=== PATIENT | female | born 1940 | race African-American/Black ===

== ENCOUNTER → 2020-06-21 | Outpatient (CLI) | payer MEDICARE, BC ==
[2013-10-20 10:45] VITALS: BP 129/56
[~2020-06-21] MED LIST: ACET650T10 PO; ALBU0.63 NEB; ASPI-630 PO; BIMA2.5D OP; DORZ10DR7 OP; FLUT16SP NS; TRIA1CAP3 PO; ZOLPIDEM 5 MG TABLET. PO ONE
--- NOTE | 2020-06-22 09:15 | SLEEP ---
DATE OF STUDY: 06/21/2020 SLEEP STUDY ATTENDING PHYSICIAN: Dr. Hays. The patient is a 80-year-old who weighs 245 pounds with a BMI of 41. The patient's [place] score was 6. The patient underwent diagnostic study performed at [facility]. During the night study, the patient spent 405 minutes in bed and slept for 301 minutes with a sleep efficiency of 74%. Sleep latency was 109 minutes with a REM latency of 160 minutes. Sleep architecture showed normal stage 1 and stage 2 sleep, increased N3 sleep and reduced REM sleep. During the night of the study, the patient slept for 301 minutes. During that time, the patient had 1 obstructive apnea, no mixed apneas, 4 central apneas and 32 hypopneas. The patient's AHI was 7 per hour. Supine AHI 7 per hour and a REM AHI of 23 per hour. Nocturnal oximetry study revealed no significant desaturation of less than 90%. EKG monitoring revealed mean heart rate of 65 beats per minute, no sustained arrhythmias observed. No PLMs observed. Due to low AHI, the patient did not meet the split night criteria for CPAP initiation. IMPRESSION: 1. Mild obstructive sleep apnea with moderate increase during REM sleep. Total AHI 7 per hour with a REM AHI of 23 per hour. 2. No clinically significant nocturnal hypoxia. 3. No clinically significant periodic limb movements. RECOMMENDATIONS: 1. If the patient is clinically symptomatic or has comorbid conditions, then consider treatment of sleep apnea with either CPAP versus oral appliance. 2. Once the patient is optimally treated, then follow up in 4-6 weeks to assess compliance and to document clinical improvement. 3. Weight loss is strongly advised. 4. Avoid [employer] depressants. 5. Caution regarding driving until symptoms of sleep apnea resolve with above recommendations. KASSIE APONTE MD DR: CRISSY/lizet JOB#: [id number] / [id number] Avelino Cabrera MD
== END ==
LOC: SLPLAB 18:45
PROVIDERS: ATTEND Internal Medicine
DX: G47.33 Obstructive sleep apnea (adult) (pediatric) (principal); G47.10 Hypersomnia, unspecified
CPT/HCPCS: 95810

== ENCOUNTER 2021-03-07 22:37 | Inpatient (IN) | payer MEDICARE, BC ==
[~2021-03-07] VITALS: Ht 165.1 cm; Wt 109.5 kg
[~2021-03-07 22:37] MED LIST changes: -ZOLPIDEM 5 MG TABLET. PO ONE
[2021-03-07 23:39] LABS: BILIRUBIN,URINE SMALL (NEG); CLARITY,URINE CLEAR; COLOR,URINE YELLOW; NITRITE,URINE NEGATIVE (NEG); PH,URINE 5.5 (<5.0-8.0); PROTEIN,URINE 30 mg/dL (NEG-TRACE)
[2021-03-07 23:45] LABS: BACTERIA,URINE FEW /HPF (0-FEW); RBC,URINE RARE /HPF (0-2); WBC,URINE RARE /HPF (0-4)
--- NOTE | 2021-03-07 23:59 | ED.ADGEN ---
Past Medical History Past Surgical History: Hysterectomy Smoking Status: Never Smoker Alcohol Use: None General Adult EDM: Chief Complaint: ALTERED MENTAL STATUS HPI: HPI: Patient is a 80 year old via EMS from home for altered mental status. Son called EMS because of patient was wandering outside and confused. He states that she occasionally has wandering thoughts in a conversation but has been persistently confused. On arrival patient thinks that she has not gotten her yet and keeps taking she is still at home. Patient has no other complaints. Has history of hypertension and does not recall the medication she takes for but says she has been taking it regularly. She denies any headaches, fevers, urinary complaints. Patient states that she thinks she has had decreased fluid intake today. Has a history of glaucoma but denies any acute vision changes Review of Systems: Review of Systems: All other systems within normal limits except for as noted in the HPI Allergies: Allergies: Allergies Coded Allergies Type Severity Reaction Last Updated Verified Iodinated Contrast Media Allergy Intermediate Rash 10/20/13 Yes Physical Exam: PE: Constitutional: Well developed, well nourished, no acute distress, non-toxic appearance. [] HENT: Normocephalic, atraumatic, bilateral external ears normal, nose normal. [] Eyes: PERRLA, conjunctiva normal, no discharge. [] Neck: No rigidity, supple, no stridor. [] Cardiovascular: Regular rate and rhythm, brisk cap refill [] Lungs & Thorax: Non labored symmetric respirations, no tachypnea or respiratory distress [] Abdomen: Soft, nondistended. Skin: Warm, dry, no erythema, no rash. [] Back: Unremarkable Extremities: No deformities, range of motion grossly intact, no lower extremity edema [] Neurologic: Alert and oriented X 3, no focal deficits noted. Cranial nerves intact, 5 out of 5 upper and lower extremity strength, no sensory deficit [] Psychologic: Affect normal, judgement normal, mood normal. [] Current Patient Data: Labs: Laboratory Tests Test 03/07/21 23:00 03/08/21 00:45 Urine Collection Type U cath Urine Color Yellow Urine Clarity Clear Urine pH 5.5 (<5.0-8.0) Urine Specific [place] 1.025 (1.000-1.030) Urine Protein 30 mg/dL (NEG-TRACE) Urine Glucose (UA) Negative mg/dL (NEG) Urine Ketones (Stick) Trace mg/dL (NEG) Urine Blood Negative (NEG) Urine Nitrite Negative (NEG) Urine Bilirubin Small (NEG) Urine Urobilinogen Dipstick 1.0 mg/dL (0.2 mg/dL) Urine Leukocyte Esterase Negative (NEG) Urine RBC Rare /HPF (0-2) Urine WBC Rare /HPF (0-4) Urine Squamous Epithelial Cells Few /LPF Urine Bacteria Few /HPF (0-FEW) Urine Mucus Mod /LPF White Blood Count 8.5 x10^3/uL (4.0-11.0) Red Blood Count 4.50 x10^6/uL (3.50-5.40) Hemoglobin 12.8 g/dL (12.0-15.5) Hematocrit 39.4 % (36.0-47.0) Mean Corpuscular Volume 88 fL (79-100) Mean Corpuscular Hemoglobin 29 pg (25-35) Mean Corpuscular Hemoglobin Concent 33 g/dL (31-37) Red Cell Distribution Width 13.2 % (11.5-14.5) Platelet Count 232 x10^3/uL (140-400) Neutrophils (%) (Auto) 73 % (31-73) Lymphocytes (%) (Auto) 20 % (24-48) L Monocytes (%) (Auto) 5 % (0-9) Eosinophils (%) (Auto) 1 % (0-3) Basophils (%) (Auto) 1 % (0-3) Neutrophils # (Auto) 6.2 x10^3/uL (1.8-7.7) Lymphocytes # (Auto) 1.7 x10^3/uL (1.0-4.8) Monocytes # (Auto) 0.4 x10^3/uL (0.0-1.1) Eosinophils # (Auto) 0.1 x10^3/uL (0.0-0.7) Basophils # (Auto) 0.1 x10^3/uL (0.0-0.2) Sodium Level 136 mmol/L (136-145) Potassium Level 3.6 mmol/L (3.5-5.1) Chloride Level 101 mmol/L (98-107) Carbon Dioxide Level 30 mmol/L (21-32) Anion Gap 5 (6-14) L Blood Urea Nitrogen 24 mg/dL (7-20) H Creatinine 1.1 mg/dL (0.6-1.0) H Estimated GFR (Cockcroft-Gault) 58.1 BUN/Creatinine Ratio 22 (6-20) H Glucose Level 119 mg/dL (70-99) H Lactic Acid Level 1.3 mmol/L (0.4-2.0) Calcium Level 10.6 mg/dL (8.5-10.1) H Phosphorus Level 2.7 mg/dL (2.6-4.7) Magnesium Level 2.1 mg/dL (1.8-2.4) Total Bilirubin 0.4 mg/dL (0.2-1.0) Aspartate Amino Transferase (AST) 14 U/L (15-37) L Alanine Aminotransferase (ALT) 19 U/L (14-59) Alkaline Phosphatase 64 U/L (46-116) Ammonia < 10 mcmol/L (11-34) L Troponin I High Sensitivity 7 ng/L (4-50) GC-Dol-W-Type Natriuretic Peptide 57 pg/mL (0-449) Total Protein 8.2 g/dL (6.4-8.2) Albumin 3.8 g/dL (3.4-5.0) Albumin/Globulin Ratio 0.9 (1.0-1.7) L Thyroid Stimulating Hormone (TSH) 1.125 uIU/mL (0.358-3.74) Laboratory Tests 03/08/21 00:45 Laboratory Tests 03/08/21 00:45 Vital Signs: Vital Signs Date Time Temp Pulse Resp B/P (MAP) Pulse Ox O2 Delivery O2 Flow Rate FiO2 03/07/21 23:42 77 165/74 (104) 99 Room Air 03/07/21 22:40 98.6 20 98.6 EKG: EKG: Sinus rhythm, heart rate 80 bpm, no ST elevation or depression, no ectopy., Normal [] Heart Score: C/O Chest Pain: No HEART Score for Chest Pain: HEART Score for Chest Pain Response (Comments) Value History Slighlty/Non-Suspicious 0 ECG Nonspecific Repolarizatio 1 Age > 65 2 Risk Factors 1 or 2 Risk Factors 1 Troponin < Normal Limit 0 Total 4 Risk Factors: Risk Factors: DM, Current or recent (<one month) smoker, HTN, HLP, family history of CAD, obesity. Risk Scores: Score 0 - 3: 2.5% MACE over next 6 weeks - Discharge Home Score 4 - 6: 20.3% MACE over next 6 weeks - Admit for Clinical Observation Score 7 - 10: 72.7% MACE over next 6 weeks - Early Invasive Strategies Radiology/Procedures: Radiology/Procedures: [facility] [address] [place] [address] IMAGING REPORT Signed PATIENT: GHAZAL MILES ACCOUNT: [id number] : 1940 LOCATION: ER AGE: 80 SEX: F EXAM STATUS: REG ER ORD. PHYSICIAN: ARIAN CAN MD REASON: ams PROCEDURE: CT HEAD WO CONTRAST CT Head W/O Contrast: History: Reason: ams / Spl. Instructions: / History: Comparison: none Axial images were obtained without contrast. There is mild to moderate diffuse atrophy. There is no mass effect, extraaxial fluid collections or hydrocephalus. There is no gross bleed. Marked diffuse periventricular and subcortical white matter hypoattenuation is seen. There is no focal loss of willis-white matter distinction to suggest acute ischemia, i.e. stroke. Impression: No acute findings. End impression PQRS Compliance Statement: One or more of the following individualized dose reduction techniques were utilized for this examination: 1. Automated exposure control 2. Adjustment of the mA and/or kV according to patient size 3. Use of iterative reconstruction technique Electronically signed by: Madhu Everett III, MD (03/08/2021 12:12 AM) [facility] DICTATED and SIGNED BY: MADHU EVERETT III, MD DATE: 03/08/21 [id number] [][facility] [address] [place], [place] [id number] IMAGING REPORT Signed PATIENT: GHAZAL MILES ACCOUNT: [id number] : 1940 LOCATION: [address] [place] [address] AGE: 80 SEX: F EXAM STATUS: ADM IN ORD. PHYSICIAN: AVELINO HAYS MD REASON: admitting PROCEDURE: CHEST AP ONLY EXAM: Chest, single view. HISTORY: Altered mental status. COMPARISON: None. FINDINGS: A frontal view of the chest obtained. There is no infiltrate, pleural effusion or pneumothorax. The heart is normal in size. There is suspected left basilar atelectasis or scarring. IMPRESSION: No acute pulmonary finding. Electronically signed by: Ginny Crook MD (03/08/2021 10:29 AM) [id number] DICTATED and SIGNED BY: GINNY CROOK MD DATE: 03/08/21 [id number] Course & Med Decision Making: Course & Med Decision Making Pertinent Labs and Imaging studies reviewed. (See chart for details) [] Dragon Disclaimer: Dragon Disclaimer: This electronic medical record was generated, in whole or in part, using a voice recognition dictation system. Departure Departure Impression: Primary Impression: AMS (altered mental status) Disposition: ADMITTED INPATIENT Admitting Physician: Avelino Hays Condition: STABLE Referrals: AVELINO HAYS MD (PCP) ARIAN CAN MD Mar 07, 2021 23:58
--- NOTE | 2021-03-08 00:15 | RAD ---
CT Head W/O Contrast: History: Reason: ams / Spl. Instructions: / History: Comparison: none Axial images were obtained without contrast. There is mild to moderate diffuse atrophy. There is no mass effect, extraaxial fluid collections or hydrocephalus. There is no gross bleed. Marked diffuse periventricular and subcortical white matter hypoattenuation is seen. There is no focal loss of willis-white matter distinction to suggest acute is chemia, i.e. stroke. Impression: No acute findings. End impression PQRS Compliance Statement: One or more of the following individualized dose reduction techniques were utilized for this examinat ion: 1. Automated exposure control 2. Adjustment of the mA and/or kV according to patient size 3. Use of iterative reconstruction technique Electronically signed by: Carter Adair III, MD (03/08/2021 12:12 AM) [facility] [place]
[2021-03-08 01:00] LABS: BASO # 0.1 x10^3/uL (0.0-0.2); BASO % 1 % (0-3); EOS # 0.1 x10^3/uL (0.0-0.7); EOS % 1 % (0-3); HEMATOCRIT 39.4 % (36.0-47.0); HEMOGLOBIN 12.8 g/dL (12.0-15.5); LYMPH # 1.7 x10^3/uL (1.0-4.8); LYMPH % 20 % (24-48); MEAN CORPUSCULAR HEMOGLOBIN 29 pg (25-35); MEAN CORPUSCULAR HGB CONC 33 g/dL (31-37); MEAN CORPUSCULAR VOLUME 88 fL (79-100); MONO # 0.4 x10^3/uL (0.0-1.1); MONO % 5 % (0-9); NEUT # 6.2 x10^3/uL (1.8-7.7); NEUT % 73 % (31-73); PLATELET COUNT 232 x10^3/uL (140-400); RED CELL DISTRIBUTION WIDTH 13.2 % (11.5-14.5); WHITE BLOOD COUNT 8.5 x10^3/uL (4.0-11.0)
[2021-03-08 01:15] LABS: CALCIUM 10.6 mg/dL (8.5-10.1); CREATININE 1.1 mg/dL (0.6-1.0); GFR 58.1; POTASSIUM 3.6 mmol/L (3.5-5.1)
[2021-03-08 01:29] LABS: ALBUMIN 3.8 g/dL (3.4-5.0); ALBUMIN/GLOBULIN RATIO 0.9 (1.0-1.7); MAGNESIUM 2.1 mg/dL (1.8-2.4); PHOSPHORUS 2.7 mg/dL (2.6-4.7); TOTAL BILIRUBIN 0.4 mg/dL (0.2-1.0); TOTAL PROTEIN 8.2 g/dL (6.4-8.2)
[2021-03-08] MEDS ORDERED: ACETAMINOPHEN 325 MG TABLET. PO PRN ×2 (02:30→09:45)
[2021-03-08] MEDS ORDERED: ONDANSETRON PF 4 MG/2 ML VIAL. IVP PRN (02:30)
[2021-03-08] MEDS ORDERED: IV NORMAL SALINE 500ML BAG 500 ML IV ONE (02:30)
--- NOTE | 2021-03-08 03:10 | EKG ---
[facility] [address] [place] [address] Test Date: 2021-03-07 Test Time: 22:44:47 Pat Name: GHAZAL MILES Department: Room: Gender: F Commercial Director: : 1940 Requested By: ARIAN CAN Order Number: [id number] Reading MD: Fredrick Cline Measurements Intervals [place] Rate: 88 P: 170 PA: 192 QRS: 13 QRSD: 82 T: 17 QT: 360 QTc: 439 Interpretive Statements SINUS RHYTHM QRS(T) CONTOUR ABNORMALITY CONSISTENT WITH INFERIOR INFARCT PROBABLY OLD ABNORMAL ECG RI6.02 No previous ECG available for comparison Electronically Signed On 03-12-2021 9:32:29 BL[employer]ACER by Fredrick Cline
[2021-03-08 04:15] VITALS: BP 166/70
--- NOTE | 2021-03-08 04:30 | NUR ---
The patient, GHAZAL MILES, 80 y/o, F admitted by SARBJIT HARVEY MD, was given written information regarding hospital policies, unit procedures and contact persons. COMPLETED ASSESSMENT AND HISTORY. PT DOESNT KNOW HER MEDICATIONS Valuables were checked and DOCUMENTED IN EMAR..LCRN
[2021-03-08 07:00] VITALS: BP 152/68
--- NOTE | 2021-03-08 07:02 | NUR ---
CALLED PT'S SON VALENTINA AND LEFT A MESSAGE FOR HIM ASKING HIM TO BRING ALL HER MEDICATIONS TO THE HOSPITAL SO THE DOCTOR CAN REORDER THEM . PT HAS SPORTS TAPE ON BILATERAL ANTERIOR LOWER LEGS. SHE SAID IT IS FOR HER KNEE ARTHRITIS. LCRN
[2021-03-08] MEDS ORDERED: MAGNESIUM HYDROXIDE 2,400 MG/30 ML ORAL.SUSP. PO PRN (09:45)
--- NOTE | 2021-03-08 09:55 | PDOC2 ---
NEUROLOGY CONSULT Date of Service DOS: DATE: 03/08/21 TIME: 09:49 Reason for Consult Reason for Consult: Altered mental status Referring Physician Referring Physician: Dr. Hays Source Source: Chart review, Patient History of Present Illness History of Present Illness The patient is a 80-year-old right-handed female whose son called emergency medical services last night because she was wandering around outside and confused. He told emergency room personnel that she wanders up sometimes and sometimes has trouble keeping her conversation straight. 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 She feels fine now. She denies any focal weakness, numbness, dysarthria, or dysphagia. She has never had a stroke, seizure, or head injury. Past Medical History Cardiovascular: HTN Pulmonary: Asthma, Pneumonia GI: GERD Psych: Depression Musculoskeletal: Osteoarthritis ENT: Other (Glaucoma, bilateral blindness) Renal/: Other (Urinary retention) Past Surgical History Past Surgical History: Hysterectomy Family History Family History: No pertinent hx Social History Social History , no alcohol or tobacco Current Medications Current Medications Current Medications Ondansetron HCl (Zofran) 4 mg PRN Q8HRS PRN IVP NAUSEA/VOMITING; Start 03/08/21 at 02:30; Stop 03/09/21 at 02:29 Acetaminophen (Tylenol) 650 mg PRN Q4HRS PRN PO FEVER > 100.3'F; Start 03/08/21 at 02:30; Stop 03/09/21 at 02:29 Sodium Chloride 500 ml @ 500 mls/hr 1X ONCE IV Last administered on 1at 02:30; Start 03/08/21 at 02:30; Stop 03/08/21 at 03:29; Status DC Active Scripts Active Reported Lumigan (Bimatoprost) 2.5 Ml Drops 0.01 Ml OP DAILY Dorzolamide-Timolol Eye Drops (Dorzolamide Hcl/Timolol Maleat) 10 Ml Drops 10 Ml OP BID Arthritis Pain Reliever (Acetaminophen) 650 Mg Tablet.er 650 Mg PO PRN Aspirin 81 Mg Tab.chew 81 Mg PO DAILY Triamterene-Hctz 37.5-25 Mg Cp (Triamterene/Hydrochlorothiazid) 1 Each Capsule 1 Cap PO DAILY Fluticasone Propionate 16 Gm [place].susp 1 [place] NS DAILY PRN Albuterol Sulfate Neb Soln (Albuterol Sulfate) 0.63 Mg/3 Ml Vial.neb 0.083 Mg NEB PRN Allergies Allergies: Coded Allergies: Iodinated Contrast Media (Verified Allergy, Intermediate, Rash, 10/20/13) codeine (Verified Adverse Reaction, Intermediate, Nausea, 03/08/21) ROS Review of System Negative for fever, chills, weight loss, shortness of breath, chest pain, indigestion, hematochezia, melena, and dysuria. Full 14-point review of systems is negative. Physical Exam Physical Examination General: Well-developed, well-nourished, black female, in no acute distress HEENT: Normocephalic andatraumatic.Temporal arteriespulsatile and nontender. Neck: Supple without bruit, no meningismus Musculoskeletal: Stability:see neurologic. Gait exam:see neurologic. Tone:see neurologic.Strength:see neurologic. Neurological: Mental Status:intact, orientation, memory, attention span/concentration, language, fund of knowledge normal. Cranial Nerves:Pupils equal and reactive to light, extraocular movements areintact, bilateral visual loss. Facial sensation is normal. There is no facial asymmetry. Vestibulo-ocular reflex is intact. Palate elevates and tongue protrudes in midline. All other cranial related problems are negative except as mentioned before.Reflexes:1+ and symmetric with flexor plantar responses. Motor:4/5 strength with normal tone and bulk. Coordination:Not easily checked due to blindness. Rapid alternating movements and fine finger movements are intact. Gait:Not tested. Sensory:Normal pinprick, vibration, light touch, proprioception. Vitals VITALS Vital Signs Date Time Temp Pulse Resp B/P (MAP) Pulse Ox O2 Delivery O2 Flow Rate FiO2 03/08/21 07:45 Room Air 03/08/21 07:00 98.6 82 18 152/68 (96) 100 98.6 Labs Labs Laboratory Tests Test 03/07/21 23:00 03/08/21 00:45 Urine Collection Type U cath Urine Color Yellow Urine Clarity Clear Urine pH 5.5 (<5.0-8.0) Urine Specific [place] 1.025 (1.000-1.030) Urine Protein 30 mg/dL (NEG-TRACE) Urine Glucose (UA) Negative mg/dL (NEG) Urine Ketones (Stick) Trace mg/dL (NEG) Urine Blood Negative (NEG) Urine Nitrite Negative (NEG) Urine Bilirubin Small (NEG) Urine Urobilinogen Dipstick 1.0 mg/dL (0.2 mg/dL) Urine Leukocyte Esterase Negative (NEG) Urine RBC Rare /HPF (0-2) Urine WBC Rare /HPF (0-4) Urine Squamous Epithelial Cells Few /LPF Urine Bacteria Few /HPF (0-FEW) Urine Mucus Mod /LPF White Blood Count 8.5 x10^3/uL (4.0-11.0) Red Blood Count 4.50 x10^6/uL (3.50-5.40) Hemoglobin 12.8 g/dL (12.0-15.5) Hematocrit 39.4 % (36.0-47.0) Mean Corpuscular Volume 88 fL (79-100) Mean Corpuscular Hemoglobin 29 pg (25-35) Mean Corpuscular Hemoglobin Concent 33 g/dL (31-37) Red Cell Distribution Width 13.2 % (11.5-14.5) Platelet Count 232 x10^3/uL (140-400) Neutrophils (%) (Auto) 73 % (31-73) Lymphocytes (%) (Auto) 20 % (24-48) Monocytes (%) (Auto) 5 % (0-9) Eosinophils (%) (Auto) 1 % (0-3) Basophils (%) (Auto) 1 % (0-3) Neutrophils # (Auto) 6.2 x10^3/uL (1.8-7.7) Lymphocytes # (Auto) 1.7 x10^3/uL (1.0-4.8) Monocytes # (Auto) 0.4 x10^3/uL (0.0-1.1) Eosinophils # (Auto) 0.1 x10^3/uL (0.0-0.7) Basophils # (Auto) 0.1 x10^3/uL (0.0-0.2) Sodium Level 136 mmol/L (136-145) Potassium Level 3.6 mmol/L (3.5-5.1) Chloride Level 101 mmol/L (98-107) Carbon Dioxide Level 30 mmol/L (21-32) Anion Gap 5 (6-14) Blood Urea Nitrogen 24 mg/dL (7-20) Creatinine 1.1 mg/dL (0.6-1.0) Estimated GFR (Cockcroft-Gault) 58.1 BUN/Creatinine Ratio 22 (6-20) Glucose Level 119 mg/dL (70-99) Lactic Acid Level 1.3 mmol/L (0.4-2.0) Calcium Level 10.6 mg/dL (8.5-10.1) Phosphorus Level 2.7 mg/dL (2.6-4.7) Magnesium Level 2.1 mg/dL (1.8-2.4) Total Bilirubin 0.4 mg/dL (0.2-1.0) Aspartate Amino Transf (AST/SGOT) 14 U/L (15-37) Alanine Aminotransferase (ALT/SGPT) 19 U/L (14-59) Alkaline Phosphatase 64 U/L (46-116) Ammonia < 10 mcmol/L (11-34) Troponin I High Sensitivity 7 ng/L (4-50) GE-Hcv-I-Type Natriuretic Peptide 57 pg/mL (0-449) Total Protein 8.2 g/dL (6.4-8.2) Albumin 3.8 g/dL (3.4-5.0) Albumin/Globulin Ratio 0.9 (1.0-1.7) Thyroid Stimulating Hormone (TSH) 1.125 uIU/mL (0.358-3.74) Laboratory Tests Test 03/07/21 23:00 03/08/21 00:45 Urine Collection Type U cath Urine Color Yellow Urine Clarity Clear Urine pH 5.5 (<5.0-8.0) Urine Specific [place] 1.025 (1.000-1.030) Urine Protein 30 mg/dL (NEG-TRACE) Urine Glucose (UA) Negative mg/dL (NEG) Urine Ketones (Stick) Trace mg/dL (NEG) Urine Blood Negative (NEG) Urine Nitrite Negative (NEG) Urine Bilirubin Small (NEG) Urine Urobilinogen Dipstick 1.0 mg/dL (0.2 mg/dL) Urine Leukocyte Esterase Negative (NEG) Urine RBC Rare /HPF (0-2) Urine WBC Rare /HPF (0-4) Urine Squamous Epithelial Cells Few /LPF Urine Bacteria Few /HPF (0-FEW) Urine Mucus Mod /LPF White Blood Count 8.5 x10^3/uL (4.0-11.0) Red Blood Count 4.50 x10^6/uL (3.50-5.40) Hemoglobin 12.8 g/dL (12.0-15.5) Hematocrit 39.4 % (36.0-47.0) Mean Corpuscular Volume 88 fL (79-100) Mean Corpuscular Hemoglobin 29 pg (25-35) Mean Corpuscular Hemoglobin Concent 33 g/dL (31-37) Red Cell Distribution Width 13.2 % (11.5-14.5) Platelet Count 232 x10^3/uL (140-400) Neutrophils (%) (Auto) 73 % (31-73) Lymphocytes (%) (Auto) 20 % (24-48) Monocytes (%) (Auto) 5 % (0-9) Eosinophils (%) (Auto) 1 % (0-3) Basophils (%) (Auto) 1 % (0-3) Neutrophils # (Auto) 6.2 x10^3/uL (1.8-7.7) Lymphocytes # (Auto) 1.7 x10^3/uL (1.0-4.8) Monocytes # (Auto) 0.4 x10^3/uL (0.0-1.1) Eosinophils # (Auto) 0.1 x10^3/uL (0.0-0.7) Basophils # (Auto) 0.1 x10^3/uL (0.0-0.2) Sodium Level 136 mmol/L (136-145) Potassium Level 3.6 mmol/L (3.5-5.1) Chloride Level 101 mmol/L (98-107) Carbon Dioxide Level 30 mmol/L (21-32) Anion Gap 5 (6-14) Blood Urea Nitrogen 24 mg/dL (7-20) Creatinine 1.1 mg/dL (0.6-1.0) Estimated GFR (Cockcroft-Gault) 58.1 BUN/Creatinine Ratio 22 (6-20) Glucose Level 119 mg/dL (70-99) Lactic Acid Level 1.3 mmol/L (0.4-2.0) Calcium Level 10.6 mg/dL (8.5-10.1) Phosphorus Level 2.7 mg/dL (2.6-4.7) Magnesium Level 2.1 mg/dL (1.8-2.4) Total Bilirubin 0.4 mg/dL (0.2-1.0) Aspartate Amino Transf (AST/SGOT) 14 U/L (15-37) Alanine Aminotransferase (ALT/SGPT) 19 U/L (14-59) Alkaline Phosphatase 64 U/L (46-116) Ammonia < 10 mcmol/L (11-34) Troponin I High Sensitivity 7 ng/L (4-50) QG-[place]-O-Type Natriuretic Peptide 57 pg/mL (0-449) Total Protein 8.2 g/dL (6.4-8.2) Albumin 3.8 g/dL (3.4-5.0) Albumin/Globulin Ratio 0.9 (1.0-1.7) Thyroid Stimulating Hormone (TSH) 1.125 uIU/mL (0.358-3.74) Images Images CT Head W/O Contrast: History: Reason: ams / Spl. Instructions: / History: Comparison: none Axial images were obtained without contrast. There is mild to moderate diffuse atrophy. There is no mass effect, extraaxial fluid collections or hydrocephalus. There is no gross bleed. Marked diffuse periventricular and subcortical white matter hypoattenuation is seen. There is no focal loss of willis-white matter distinction to suggest acute ischemia, i.e. stroke. Impression: No acute findings. End impression Assessment/Plan Assessment/Plan Impression: Altered mental status, probably confusional state due to blindness, she may be developing mild dementia. There is no obvious metabolic issue. Behavior sounds too complex to be due to a seizure. She had some hyperglycemia and hypercalcemia. She feels fine now. Recommendations: Additional laboratory studies for easily reversible causes of dementia. Hold off on electroencephalogram Okay for discharge later today Follow-up with ophthalmology Follow-up with neurology if confusion recurs I left a message with the patient's son. ANNI WARD MD Mar 08, 2021 09:54
--- NOTE | 2021-03-08 10:00 | PDOC ---
Provider Note Date of Service: DATE: 03/08/21 TIME: 09:59 Provider Note history and physical dictated # [id number] Justifications for Admission Other Justification SARBJIT HARVEY MD Mar 08, 2021 10:00
--- NOTE | 2021-03-08 10:32 | RAD ---
EXAM: Chest, single view. HISTORY: Altered mental status. COMPARISON: None. FINDINGS: A frontal view of the chest obtained. There is no infiltrate, pleural effusion or pneumotho rax. The heart is normal in size. There is suspected left basilar atelectasis or scarring. IMPRESSION: No acute pulmonary finding. Electronically signed by: Ginny Martinez MD (03/08/2021 10:29 AM) [id number]
[2021-03-08 11:00] VITALS: BP 126/63
[2021-03-08] MEDS: POTASSIUM CHLORIDE 20 MEQ TABLET.ER. PO SCH (11:49)
[2021-03-08] MEDS: TRIAMTERENE/HCTZ 37.5/25MG TABLET. PO SCH (11:49)
--- NOTE | 2021-03-08 13:00 | HP ---
DATE OF SERVICE: 03/08/2021 ADMIT DATE: 03/08/2021 LOCATION: She is in room 660. HISTORY OF PRESENT ILLNESS: The patient is a morbidly obese 80-year-old -[place] female with a history of hypertension and osteoarthritis, who apparently was confused at home. She does live with her son. According to the son, the patient was wandering outside and was confused and apparently also had some wandering thoughts during conversation. The patient was sent to the [facility] Emergency Room. According to the patient, the patient was on the telephone with somebody and was confused after that and says she was going to put a sweet potato in microwave and she slipped in the kitchen and fell on the floor, the paramedics arrived to help her get up. She denied any head trauma or loss of consciousness. In any case, the patient was sent to the Emergency Room where a CAT scan of the head showed no acute abnormality. Laboratory tests were unremarkable and she was subsequently admitted to the hospital for further evaluation and treatment. She was placed on telemetry, did not have any arrhythmias. She denies any fever. She has an occasional cough, which she had with clear sputum. ALLERGIES AND INTOLERANCES: TO CODEINE, IV IODINE. MEDICATIONS PRIOR TO ADMISSION: Include Celebrex 200 mg every day p.r.n., furosemide 20 mg every day p.r.n. for leg swelling, eye drops for glaucoma, potassium chloride 20 mEq every day, Dyazide 37.5-25 mg 1 every day. PAST MEDICAL HISTORY: Significant for morbid obesity, hypertension, hyperlipidemia, glaucoma, hysterectomy, arthrocentesis in the left knee, osteoarthritis. SOCIAL HISTORY: She denies drinking alcohol or smoking cigarettes. Lives with her son, uses a cane at home. FAMILY HISTORY: Not contributory. REVIEW OF SYSTEMS: GENERAL: She denies any fever, chills or sweats in the last few days. CARDIOVASCULAR: No chest pain. PULMONARY: Shortness of breath. She has an occasional cough with clear sputum. GASTROINTESTINAL: No constipation. ENDOCRINE: No diabetes mellitus. SKIN: No rashes. Rest of systems reviewed and are negative except as stated in the history of present illness. PHYSICAL EXAMINATION: VITAL SIGNS: Temperature 98.6 degrees, apical pulse regular at 82, respiratory rate 18, blood pressure 152/68, oxygen saturation 100% on room air. HEENT: Eyes, gaze is conjugate. She has poor vision. Mouth is symmetrical. Tongue is midline. NECK: There is no cervical lymphadenopathy or thyroid enlargement. HEART: Reveals an S1, S2. There is no S3 or murmur. LUNGS: Clear. ABDOMEN: Obese and soft, nontender with no hepatosplenomegaly, masses or tenderness. EXTREMITIES: Lower extremities without edema. Dorsalis pedis pulses are present bilaterally. SKIN: No rashes. NEUROLOGIC: There is no facial weakness. She has got 5/5 bilateral hand vp client services and biceps strength. Able to dorsi and plantarflex her feet, bend her knees and raise her legs up in the air symmetrically. She could not tell me the year. She knew the month was February. She could not tell me the next holiday. She could not recite the months of the year backwards starting with March. LABORATORY DATA: Review of her laboratory tests, sodium 136, potassium 3.6, chloride 101, total CO2 of 30 with a BUN of 24, creatinine 1.1, blood sugar was 19, calcium 10.6. Liver function tests normal. Albumin 3.8. The white count was 8.5, hemoglobin 12.8, platelet count 332,000, polys 73 and 20 lymphocytes. Urinalysis showed rare white cells, rare wbc's. She had a CAT scan of the head done and it showed no acute finding. It showed [id number] atrophy. No mass effect, fluid collection or hydrocephalus. No bleed. No evidence of acute stroke was seen. I do not see a chest x-ray done. EKG per the note of the Emergency Room physician showed normal sinus rhythm with no acute change. ASSESSMENT: 1. Altered mental status, most likely secondary to mild cognitive impairment versus dementia. Metabolic encephalopathy is another possibility; however, I believe she does have at least some mild cognitive impairment and possibly dementia. 2. Hypertension. 3. Osteoarthritis. 4. Morbid obesity. 5. Glaucoma with impaired vision. PLAN: The plan at this time is consult to Dr. Ellis. He has not written a note yet. We will consult physical and occupational therapy for a possible fall. She does have impaired vision. Resume her home daily medications including the Dyazide and potassium chloride. Continue with telemetry. We will also get a vitamin B12 level. She did have a thyroid stimulating hormone level and the thyroid stimulating hormone level was normal. ProBNP and the ammonia level and the troponin level and a lactic acid level were all normal. So the plan at this time as mentioned is physical and occupational therapy. Speech therapy will evaluate her cognition and I am going to consult Dr. Weir, the neurologist. Continue her home medicines. We will check a B12 level. Await the recommendations from Dr. Ellis. Continue telemetry. Thank you very much. JADE DR: Edi TID: [id number]
[2021-03-08] MEDS: DICLOFENAC SODIUM 1% TOPICAL GEL 100GM TUBE. TP SCH ×2 (14:46→21:26)
[2021-03-08 15:00] VITALS: BP 133/69
--- NOTE | 2021-03-08 15:52 | NUR ---
SS following for discharge planning. SS reviewed pt chart and discussed with pt RN. Pt is from home with son and is currently on room air. PT/OT/ST ordered. Neurology consulted. SS will continue to follow for discharge planning.
[2021-03-08 19:47] VITALS: BP 110/56
[2021-03-08] MEDS: ENOXAPARIN 40 MG/0.4 ML SYRINGE. SQ SCH (21:25)
[2021-03-08 22:50] VITALS: BP 149/86
[2021-03-09 02:49] VITALS: BP 135/68
[2021-03-09 06:07] LABS: BASO % 0 % (0-3); EOS # 0.2 x10^3/uL (0.0-0.7); EOS % 2 % (0-3); HEMATOCRIT 38.6 % (36.0-47.0); HEMOGLOBIN 12.2 g/dL (12.0-15.5); LYMPH # 3.1 x10^3/uL (1.0-4.8); LYMPH % 47 % (24-48); MEAN CORPUSCULAR HEMOGLOBIN 28 pg (25-35); MEAN CORPUSCULAR HGB CONC 32 g/dL (31-37); MEAN CORPUSCULAR VOLUME 87 fL (79-100); MONO # 0.4 x10^3/uL (0.0-1.1); MONO % 6 % (0-9); NEUT # 2.8 x10^3/uL (1.8-7.7); NEUT % 44 % (31-73); PLATELET COUNT 233 x10^3/uL (140-400); RED BLOOD COUNT 4.42 x10^6/uL (3.50-5.40); RED CELL DISTRIBUTION WIDTH 13.6 % (11.5-14.5); WHITE BLOOD COUNT 6.5 x10^3/uL (4.0-11.0)
[2021-03-09 06:17] LABS: CALCIUM 10.3 mg/dL (8.5-10.1); CREATININE 0.9 mg/dL (0.6-1.0); GFR 73.3; POTASSIUM 3.6 mmol/L (3.5-5.1)
[2021-03-09 07:00] VITALS: BP 149/68
[2021-03-09] MEDS: TRIAMTERENE/HCTZ 37.5/25MG TABLET. PO SCH (08:32)
[2021-03-09] MEDS: POTASSIUM CHLORIDE 20 MEQ TABLET.ER. PO SCH (08:32)
[2021-03-09] MEDS: DICLOFENAC SODIUM 1% TOPICAL GEL 100GM TUBE. TP SCH ×3 (08:32→20:46)
[2021-03-09 10:15] VITALS: BP 153/62
--- NOTE | 2021-03-09 11:07 | PDOC ---
PROGRESS NOTES Date of Service DATE: 03/09/21 TIME: 11:04 Subjective Subjective lab reviewed. feels okay. discussed with hospice social worker that PT recommends SNF. also I recommend she eventually dismiss to [facility] due to cognitive and visual deficits Objective Objective Vital Signs Date Time Temp Pulse Resp B/P (MAP) Pulse Ox O2 Delivery O2 Flow Rate FiO2 03/09/21 10:15 98.2 85 20 153/62 (92) 99 Room Air 98.2 Intake and Output 03/09/21 07:00 Intake Total 300 ml Output Total 700 ml Balance -400 ml Intake Oral 300 ml Output Urine Total 700 ml # Voids 2 Physical Exam Abdomen: Soft Heart: Regular rate, Normal S1, Normal S2 Extremities: No edema General: Alert HEENT: Atraumatic Lungs: Clear to auscultation Neuro: Normal speech Psych/Mental Status: Mood NL, Other (does not know year) Skin: No rashes Assessment Assessment 1. Altered mental status, most likely secondary to mild cognitive impairment versus dementia. Metabolic encephalopathy is another possibility; however, I believe she does have at least some mild cognitive impairment and possibly dementia. 2. Hypertension. 3. Osteoarthritis. 4. Morbid obesity. 5. Glaucoma with impaired vision. Plan Plan of Care PT and OT SNF screen continue same meds Comment Review of Relevant I have reviewed the following items tamia (where applicable) has been applied. Labs Laboratory Tests Test 03/07/21 23:00 03/08/21 00:45 03/08/21 10:00 03/09/21 03:35 Urine Collection Type U cath Urine Color Yellow Urine Clarity Clear Urine pH 5.5 (<5.0-8.0) Urine Specific [place] 1.025 (1.000-1.030) Urine Protein 30 mg/dL (NEG-TRACE) Urine Glucose (UA) Negative mg/dL (NEG) Urine Ketones (Stick) Trace mg/dL (NEG) Urine Blood Negative (NEG) Urine Nitrite Negative (NEG) Urine Bilirubin Small (NEG) Urine Urobilinogen Dipstick 1.0 mg/dL (0.2 mg/dL) Urine Leukocyte Esterase Negative (NEG) Urine RBC Rare /HPF (0-2) Urine WBC Rare /HPF (0-4) Urine Squamous Epithelial Cells Few /LPF Urine Bacteria Few /HPF (0-FEW) Urine Mucus Mod /LPF White Blood Count 8.5 x10^3/uL (4.0-11.0) 6.5 x10^3/uL (4.0-11.0) Red Blood Count 4.50 x10^6/uL (3.50-5.40) 4.42 x10^6/uL (3.50-5.40) Hemoglobin 12.8 g/dL (12.0-15.5) 12.2 g/dL (12.0-15.5) Hematocrit 39.4 % (36.0-47.0) 38.6 % (36.0-47.0) Mean Corpuscular Volume 88 fL (79-100) 87 fL (79-100) Mean Corpuscular Hemoglobin 29 pg (25-35) 28 pg (25-35) Mean Corpuscular Hemoglobin Concent 33 g/dL (31-37) 32 g/dL (31-37) Red Cell Distribution Width 13.2 % (11.5-14.5) 13.6 % (11.5-14.5) Platelet Count 232 x10^3/uL (140-400) 233 x10^3/uL (140-400) Neutrophils (%) (Auto) 73 % (31-73) 44 % (31-73) Lymphocytes (%) (Auto) 20 % (24-48) 47 % (24-48) Monocytes (%) (Auto) 5 % (0-9) 6 % (0-9) Eosinophils (%) (Auto) 1 % (0-3) 2 % (0-3) Basophils (%) (Auto) 1 % (0-3) 0 % (0-3) Neutrophils # (Auto) 6.2 x10^3/uL (1.8-7.7) 2.8 x10^3/uL (1.8-7.7) Lymphocytes # (Auto) 1.7 x10^3/uL (1.0-4.8) 3.1 x10^3/uL (1.0-4.8) Monocytes # (Auto) 0.4 x10^3/uL (0.0-1.1) 0.4 x10^3/uL (0.0-1.1) Eosinophils # (Auto) 0.1 x10^3/uL (0.0-0.7) 0.2 x10^3/uL (0.0-0.7) Basophils # (Auto) 0.1 x10^3/uL (0.0-0.2) 0.0 x10^3/uL (0.0-0.2) Sodium Level 136 mmol/L (136-145) 140 mmol/L (136-145) Potassium Level 3.6 mmol/L (3.5-5.1) 3.6 mmol/L (3.5-5.1) Chloride Level 101 mmol/L (98-107) 103 mmol/L (98-107) Carbon Dioxide Level 30 mmol/L (21-32) 29 mmol/L (21-32) Anion Gap 5 (6-14) 8 (6-14) Blood Urea Nitrogen 24 mg/dL (7-20) 17 mg/dL (7-20) Creatinine 1.1 mg/dL (0.6-1.0) 0.9 mg/dL (0.6-1.0) Estimated GFR (Cockcroft-Gault) 58.1 73.3 BUN/Creatinine Ratio 22 (6-20) Glucose Level 119 mg/dL (70-99) 87 mg/dL (70-99) Lactic Acid Level 1.3 mmol/L (0.4-2.0) Calcium Level 10.6 mg/dL (8.5-10.1) 10.3 mg/dL (8.5-10.1) Phosphorus Level 2.7 mg/dL (2.6-4.7) Magnesium Level 2.1 mg/dL (1.8-2.4) Total Bilirubin 0.4 mg/dL (0.2-1.0) Aspartate Amino Transf (AST/SGOT) 14 U/L (15-37) Alanine Aminotransferase (ALT/SGPT) 19 U/L (14-59) Alkaline Phosphatase 64 U/L (46-116) Ammonia < 10 mcmol/L (11-34) Troponin I High Sensitivity 7 ng/L (4-50) FW-Lgy-T-Type Natriuretic Peptide 57 pg/mL (0-449) Total Protein 8.2 g/dL (6.4-8.2) Albumin 3.8 g/dL (3.4-5.0) Albumin/Globulin Ratio 0.9 (1.0-1.7) Thyroid Stimulating Hormone (TSH) 1.125 uIU/mL (0.358-3.74) Erythrocyte Sedimentation Rate 23 (0-25) Vitamin B12 Level 543 pg/mL (247-911) Laboratory Tests Test 03/09/21 03:35 White Blood Count 6.5 x10^3/uL (4.0-11.0) Red Blood Count 4.42 x10^6/uL (3.50-5.40) Hemoglobin 12.2 g/dL (12.0-15.5) Hematocrit 38.6 % (36.0-47.0) Mean Corpuscular Volume 87 fL (79-100) Mean Corpuscular Hemoglobin 28 pg (25-35) Mean Corpuscular Hemoglobin Concent 32 g/dL (31-37) Red Cell Distribution Width 13.6 % (11.5-14.5) Platelet Count 233 x10^3/uL (140-400) Neutrophils (%) (Auto) 44 % (31-73) Lymphocytes (%) (Auto) 47 % (24-48) Monocytes (%) (Auto) 6 % (0-9) Eosinophils (%) (Auto) 2 % (0-3) Basophils (%) (Auto) 0 % (0-3) Neutrophils # (Auto) 2.8 x10^3/uL (1.8-7.7) Lymphocytes # (Auto) 3.1 x10^3/uL (1.0-4.8) Monocytes # (Auto) 0.4 x10^3/uL (0.0-1.1) Eosinophils # (Auto) 0.2 x10^3/uL (0.0-0.7) Basophils # (Auto) 0.0 x10^3/uL (0.0-0.2) Sodium Level 140 mmol/L (136-145) Potassium Level 3.6 mmol/L (3.5-5.1) Chloride Level 103 mmol/L (98-107) Carbon Dioxide Level 29 mmol/L (21-32) Anion Gap 8 (6-14) Blood Urea Nitrogen 17 mg/dL (7-20) Creatinine 0.9 mg/dL (0.6-1.0) Estimated GFR (Cockcroft-Gault) 73.3 Glucose Level 87 mg/dL (70-99) Calcium Level 10.3 mg/dL (8.5-10.1) Microbiology 03/08/21 Blood Culture - Preliminary, Resulted NO GROWTH AFTER 1 DAY Medications Current Medications Ondansetron HCl (Zofran) 4 mg PRN Q8HRS PRN IVP NAUSEA/VOMITING; Start 03/08/21 at 02:30; Stop 03/09/21 at 02:29; Status DC Acetaminophen (Tylenol) 650 mg PRN Q4HRS PRN PO FEVER > 100.3'F; Start 03/08/21 at 02:30; Stop 03/08/21 at 09:57; Status DC Sodium Chloride 500 ml @ 500 mls/hr 1X ONCE IV Last administered on 03/08/21at 02:30; Start 03/08/21 at 02:30; Stop 03/08/21 at 03:29; Status DC Potassium Chloride (Klor-Con) 20 meq DAILY PO Last administered on 03/09/21at 08:32; Start 03/08/21 at 11:00 Triamterene/HCTZ (Maxzide 37.5/ 25mg) 1 tab DAILY PO Last administered on 03/09/21at 08:32; Start 03/08/21 at 11:00 Acetaminophen (Tylenol) 650 mg PRN Q6HRS PRN PO MILD PAIN / TEMP > 100.3'F; Start 03/08/21 at 09:45 Magnesium Hydroxide (Milk Of Magnesia) 2,400 mg PRN DAILY PRN PO CONSTIPATION; Start 03/08/21 at 09:45 Enoxaparin Sodium (Lovenox 40mg Syringe) 40 mg Q24H SQ Last administered on 03/08/21at 21:25; Start 03/08/21 at 21:00 Diclofenac Sodium (Voltaren) 1 hayden TID TP Last administered on 03/09/21at 08 :32; Start 03/08/21 at 14:00 Active Scripts Active Reported Lumigan (Bimatoprost) 2.5 Ml Drops 0.01 Ml OP DAILY Dorzolamide-Timolol Eye Drops (Dorzolamide Hcl/Timolol Maleat) 10 Ml Drops 10 Ml OP BID Arthritis Pain Reliever (Acetaminophen) 650 Mg Tablet.er 650 Mg PO PRN Aspirin 81 Mg Tab.chew 81 Mg PO DAILY Triamterene-Hctz 37.5-25 Mg Cp (Triamterene/Hydrochlorothiazid) 1 Each Capsule 1 Cap PO DAILY Fluticasone Propionate 16 Gm [place].susp 1 [place] NS DAILY PRN Albuterol Sulfate Neb Soln (Albuterol Sulfate) 0.63 Mg/3 Ml Vial.neb 0.083 Mg NEB PRN Vitals/I & O Vital Sign - Last 24 Hours 03/08/21 03/08/21 03/08/21 03/08/21 15:00 19:41 19:47 22:50 Temp 98.7 98.1 98.2 98.7 98.1 98.2 Pulse 81 77 78 Resp 18 18 18 B/P (MAP) 133/69 (90) 110/56 (74) 149/86 (107) Pulse Ox 98 98 100 O2 Delivery Room Air Room Air Room Air Room Air 03/09/21 03/09/21 03/09/21 03/09/21 02:49 07:00 08:25 10:15 Temp 97.8 98.5 98.2 97.8 98.5 98.2 Pulse 72 73 85 Resp 17 20 20 B/P (MAP) 135/68 (90) 149/68 (95) 153/62 (92) Pulse Ox 100 99 99 O2 Delivery Room Air Room Air Room Air Room Air Intake and Output 03/08/21 03/08/21 03/09/21 15:00 23:00 07:00 Intake Total 200 ml 100 ml Output Total 200 ml 500 ml Balance -200 ml -300 ml 100 ml Justifications for Admission Other Justification SARBJIT HARVEY MD Mar 09, 2021 11:07
[2021-03-09] MEDS ORDERED: POTA20TA4 PO (11:14)
[2021-03-09] MEDS ORDERED: Diclofenac Sodium TP (11:14)
--- NOTE | 2021-03-09 11:16 | SNU/HH DC ---
DISCHARGE ORDERS DISCHARGE INFORMATION: DISCHARGE DATE: Mar 11, 2021 FINAL DIAGNOSIS debility and mild cognitive impairment and visual impairment due to glaucoma CONDITION ON DISCHARGE: Stable CODE STATUS: Code Status: Full SENIOR LIVING: SNF STAY <30 DAYS: Yes POST DISCHARGE ORDERS: DIET AFTER DISCHARGE: Regular FOLLOW-UP: Additional Instructions: please have son bring in glaucoma eye drops from home. evaluate for assisted living facility after dismissal from SNF due to visual and cognitive deficits. office visit with dr. Hays the following week after dismissal from SNF TREATMENT/EQUIPMENT ORDERS: Physical Therapy For: Evalulation/Treatment Occupational Therapy For: Evaluation/Treatment Speech Language Pathology For: Other: (cognitive deficits) DISCHARGE MEDICATIONS: Home Meds Active Scripts [Diclofenac Sodium 1% Topical] 100 GM GEL..GRAM. No Conflict Check, 1 MARCI TP TID, EACH apply 4 grams tid to both knees Prov:SARBJIT HAYS MD 03/09/21 Potassium Chloride (POTASSIUM CHLORIDE ) 20 Meq Tablet.er, 20 MEQ PO DAILY for potasium chloride supplement, #30 TAB.SR Prov:SARBJIT HAYS MD 03/09/21 Reported Medications Acetaminophen (ARTHRITIS PAIN RELIEVER) 650 Mg Tablet.er, 650 MG PO PRN for PAIN 10/20/13 Triamterene/Hydrochlorothiazid (TRIAMTERENE-HCTZ 37.5-25 MG CP) 1 Each Capsule, 1 CAP PO DAILY, CAP 10/20/13 Discontinued Reported Medications Bimatoprost (LUMIGAN) 2.5 Ml Drops, 0.01 ML OP DAILY 10/20/13 Dorzolamide Hcl/Timolol Maleat (DORZOLAMIDE-TIMOLOL EYE DROPS) 10 Ml Drops, 10 ML OP BID 10/20/13 Aspirin (ASPIRIN) 81 Mg Tab.chew, 81 MG PO DAILY, TAB.CHEW 10/20/13 Fluticasone Propionate (FLUTICASONE PROPIONATE NASAL SPRAY) 16 Gm [place].susp, 1 SPRAY NS DAILY PRN for ALLERGIES, EACH 10/20/13 Albuterol Sulfate (ALBUTEROL SULFATE NEB SOLN) 0.63 Mg/3 Ml Vial.neb, 0.083 MG NEB PRN for ALLERGIES, EACH 0 Refills 10/20/13 SARBJIT HAYS MD Mar 09, 2021 11:16
--- NOTE | 2021-03-09 11:20 | PDOC ---
Provider Note Date of Service: DATE: 03/09/21 TIME: 11:20 Provider Note discharge summary dictated # [id number] Justifications for Admission Other Justification SARBJIT HARVEY MD Mar 09, 2021 11:20
--- NOTE | 2021-03-09 12:30 | DS ---
DATE OF ANTICIPATED DISMISSAL: 03/11/2021 ATTENDING PHYSICIAN: Lis Sotelo. WINDOW COVERING SALES CONSULTANT: Dr. Ellis. FINAL DIAGNOSES: 1. Altered mental status, most likely secondary to mild cognitive impairment. 2. Debility. 3. Visual impairment. 4. Glaucoma. 5. Hypertension. 6. Osteoarthritis. 7. Morbid obesity. 8. Glaucoma with impaired vision. 9. Debility. HOSPITAL COURSE: The patient is a morbidly obese 80-year-old -[place] female with a history of hypertension, osteoarthritis and apparently was confused at home. She does live with her son. According to the son, the patient was wandering outside and was confused and apparently had wandering thoughts during conversation prior to that. She was sent to the [facility] Emergency Room. Laboratory tests were okay. CAT scan of the head showed no acute abnormality. Chest x-ray was negative and labs were okay. She was seen by physical and occupational therapy. Seen by Dr. Ellis in consultation. It is felt that she most likely had early dementia or mild cognitive impairment. The patient could not tell me the year, could not recite the months back or the year backward. She did have osteoarthritis of her knees and was treated with Voltaren gel. She was seen by physical and occupational therapy and the physical therapist recommended a intermediate facility for 2 weeks. I discussed the case with the social worker delinquency prevention today and recommended that she go to assisted living facility after the intermediate facility due to her impaired vision and cognition. DISCHARGE MEDICATIONS: She will be dismissed to the intermediate facility on 03/11 on Dyazide 1 every day, potassium chloride 20 mEq every day, Voltaren gel 4 grams t.i.d. to both knees and eyedrops, which will be brought from home for glaucoma. MIS/NASREEN SOTELO: MIS/lizet TID: [id number]
--- NOTE | 2021-03-09 12:47 | PDOC ---
PROGRESS NOTES Date of Service DATE: 03/09/21 TIME: 12:45 Assessment Altered mental status, probably confusional state due to blindness, she may be developing mild dementia. There is no obvious metabolic issue. Behavior sounds too complex to be due to a seizure. Labs for easily reversible causes of dementia are negative she had some hyperglycemia and hypercalcemia. She feels fine now. Plan Okay for discharge to alf I discussed with the son yesterday Follow-up with me as needed Subjective Patient is upset that that a delivered her lunch tray without pointing out where everything was Objective Vital Signs Date Time Temp Pulse Resp B/P (MAP) Pulse Ox O2 Delivery O2 Flow Rate FiO2 03/09/21 10:15 98.2 85 20 153/62 (92) 99 Room Air 98.2 Intake and Output 03/09/21 07:00 Intake Total 300 ml Output Total 700 ml Balance -400 ml Intake Oral 300 ml Output Urine Total 700 ml # Voids 2 PHYSICAL EXAM Physical Exam: Alert. Oriented to time, place and person. PERRL. EOMI. CN: Blind both eyes, otherwise no focal findings. Muscle tone: normal. Muscle strength: 4/5 DTR: 1+ Plantar reflex: Flexor Gait: not examined in bed. Sensory exam: no abnormal findings. No cerebellar signs elicited, limited by her blind. Review of Relevant I have reviewed the following items tamia (where applicable) has been applied. Labs Laboratory Tests Test 03/07/21 23:00 03/08/21 00:45 03/08/21 10:00 03/09/21 03:35 Urine Collection Type U cath Urine Color Yellow Urine Clarity Clear Urine pH 5.5 (<5.0-8.0) Urine Specific Sylvester 1.025 (1.000-1.030) Urine Protein 30 mg/dL (NEG-TRACE) Urine Glucose (UA) Negative mg/dL (NEG) Urine Ketones (Stick) Trace mg/dL (NEG) Urine Blood Negative (NEG) Urine Nitrite Negative (NEG) Urine Bilirubin Small (NEG) Urine Urobilinogen Dipstick 1.0 mg/dL (0.2 mg/dL) Urine Leukocyte Esterase Negative (NEG) Urine RBC Rare /HPF (0-2) Urine WBC Rare /HPF (0-4) Urine Squamous Epithelial Cells Few /LPF Urine Bacteria Few /HPF (0-FEW) Urine Mucus Mod /LPF White Blood Count 8.5 x10^3/uL (4.0-11.0) 6.5 x10^3/uL (4.0-11.0) Red Blood Count 4.50 x10^6/uL (3.50-5.40) 4.42 x10^6/uL (3.50-5.40) Hemoglobin 12.8 g/dL (12.0-15.5) 12.2 g/dL (12.0-15.5) Hematocrit 39.4 % (36.0-47.0) 38.6 % (36.0-47.0) Mean Corpuscular Volume 88 fL (79-100) 87 fL (79-100) Mean Corpuscular Hemoglobin 29 pg (25-35) 28 pg (25-35) Mean Corpuscular Hemoglobin Concent 33 g/dL (31-37) 32 g/dL (31-37) Red Cell Distribution Width 13.2 % (11.5-14.5) 13.6 % (11.5-14.5) Platelet Count 232 x10^3/uL (140-400) 233 x10^3/uL (140-400) Neutrophils (%) (Auto) 73 % (31-73) 44 % (31-73) Lymphocytes (%) (Auto) 20 % (24-48) 47 % (24-48) Monocytes (%) (Auto) 5 % (0-9) 6 % (0-9) Eosinophils (%) (Auto) 1 % (0-3) 2 % (0-3) Basophils (%) (Auto) 1 % (0-3) 0 % (0-3) Neutrophils # (Auto) 6.2 x10^3/uL (1.8-7.7) 2.8 x10^3/uL (1.8-7.7) Lymphocytes # (Auto) 1.7 x10^3/uL (1.0-4.8) 3.1 x10^3/uL (1.0-4.8) Monocytes # (Auto) 0.4 x10^3/uL (0.0-1.1) 0.4 x10^3/uL (0.0-1.1) Eosinophils # (Auto) 0.1 x10^3/uL (0.0-0.7) 0.2 x10^3/uL (0.0-0.7) Basophils # (Auto) 0.1 x10^3/uL (0.0-0.2) 0.0 x10^3/uL (0.0-0.2) Sodium Level 136 mmol/L (136-145) 140 mmol/L (136-145) Potassium Level 3.6 mmol/L (3.5-5.1) 3.6 mmol/L (3.5-5.1) Chloride Level 101 mmol/L (98-107) 103 mmol/L (98-107) Carbon Dioxide Level 30 mmol/L (21-32) 29 mmol/L (21-32) Anion Gap 5 (6-14) 8 (6-14) Blood Urea Nitrogen 24 mg/dL (7-20) 17 mg/dL (7-20) Creatinine 1.1 mg/dL (0.6-1.0) 0.9 mg/dL (0.6-1.0) Estimated GFR (Cockcroft-Gault) 58.1 73.3 BUN/Creatinine Ratio 22 (6-20) Glucose Level 119 mg/dL (70-99) 87 mg/dL (70-99) Lactic Acid Level 1.3 mmol/L (0.4-2.0) Calcium Level 10.6 mg/dL (8.5-10.1) 10.3 mg/dL (8.5-10.1) Phosphorus Level 2.7 mg/dL (2.6-4.7) Magnesium Level 2.1 mg/dL (1.8-2.4) Total Bilirubin 0.4 mg/dL (0.2-1.0) Aspartate Amino Transf (AST/SGOT) 14 U/L (15-37) Alanine Aminotransferase (ALT/SGPT) 19 U/L (14-59) Alkaline Phosphatase 64 U/L (46-116) Ammonia < 10 mcmol/L (11-34) Troponin I High Sensitivity 7 ng/L (4-50) CX-Skb-J-Type Natriuretic Peptide 57 pg/mL (0-449) Total Protein 8.2 g/dL (6.4-8.2) Albumin 3.8 g/dL (3.4-5.0) Albumin/Globulin Ratio 0.9 (1.0-1.7) Thyroid Stimulating Hormone (TSH) 1.125 uIU/mL (0.358-3.74) Erythrocyte Sedimentation Rate 23 (0-25) Vitamin B12 Level 543 pg/mL (247-911) Laboratory Tests Test 03/09/21 03:35 White Blood Count 6.5 x10^3/uL (4.0-11.0) Red Blood Count 4.42 x10^6/uL (3.50-5.40) Hemoglobin 12.2 g/dL (12.0-15.5) Hematocrit 38.6 % (36.0-47.0) Mean Corpuscular Volume 87 fL (79-100) Mean Corpuscular Hemoglobin 28 pg (25-35) Mean Corpuscular Hemoglobin Concent 32 g/dL (31-37) Red Cell Distribution Width 13.6 % (11.5-14.5) Platelet Count 233 x10^3/uL (140-400) Neutrophils (%) (Auto) 44 % (31-73) Lymphocytes (%) (Auto) 47 % (24-48) Monocytes (%) (Auto) 6 % (0-9) Eosinophils (%) (Auto) 2 % (0-3) Basophils (%) (Auto) 0 % (0-3) Neutrophils # (Auto) 2.8 x10^3/uL (1.8-7.7) Lymphocytes # (Auto) 3.1 x10^3/uL (1.0-4.8) Monocytes # (Auto) 0.4 x10^3/uL (0.0-1.1) Eosinophils # (Auto) 0.2 x10^3/uL (0.0-0.7) Basophils # (Auto) 0.0 x10^3/uL (0.0-0.2) Sodium Level 140 mmol/L (136-145) Potassium Level 3.6 mmol/L (3.5-5.1) Chloride Level 103 mmol/L (98-107) Carbon Dioxide Level 29 mmol/L (21-32) Anion Gap 8 (6-14) Blood Urea Nitrogen 17 mg/dL (7-20) Creatinine 0.9 mg/dL (0.6-1.0) Estimated GFR (Cockcroft-Gault) 73.3 Glucose Level 87 mg/dL (70-99) Calcium Level 10.3 mg/dL (8.5-10.1) Microbiology 03/08/21 Blood Culture - Preliminary, Resulted NO GROWTH AFTER 1 DAY Medications Current Medications Ondansetron HCl (Zofran) 4 mg PRN Q8HRS PRN IVP NAUSEA/VOMITING; Start 03/08/21 at 02:30; Stop 03/09/21 at 02:29; Status DC Acetaminophen (Tylenol) 650 mg PRN Q4HRS PRN PO FEVER > 100.3'F; Start 03/08/21 at 02:30; Stop 03/08/21 at 09:57; Status DC Sodium Chloride 500 ml @ 500 mls/hr 1X ONCE IV Last administered on 03/08/21at 02:30; Start 03/08/21 at 02:30; Stop 03/08/21 at 03:29; Status DC Potassium Chloride (Klor-Con) 20 meq DAILY PO Last administered on 03/09/21at 08:32; Start 03/08/21 at 11:00 Triamterene/HCTZ (Maxzide 37.5/ 25mg) 1 tab DAILY PO Last administered on 03/09/21at 08:32; Start 03/08/21 at 11:00 Acetaminophen (Tylenol) 650 mg PRN Q6HRS PRN PO MILD PAIN / TEMP > 100.3'F; Start 03/08/21 at 09:45 Magnesium Hydroxide (Milk Of Magnesia) 2,400 mg PRN DAILY PRN PO CONSTIPATION; Start 03/08/21 at 09:45 Enoxaparin Sodium (Lovenox 40mg Syringe) 40 mg Q24H SQ Last administered on 03/08/21at 21:25; Start 03/08/21 at 21:00 Diclofenac Sodium (Voltaren) 1 kyrie TID TP Last administered on 03/09/21at 08:32; Start 03/08/21 at 14:00 Active Scripts Active [Diclofenac Sodium] 100 GM Gel..gram. 1 Kyrie TP TID apply 4 grams tid to both knees Potassium Chloride (Potassium Chloride) 20 Meq Tablet.er 20 Meq PO DAILY Reported Arthritis Pain Reliever (Acetaminophen) 650 Mg Tablet.er 650 Mg PO PRN Triamterene-Hctz 37.5-25 Mg Cp (Triamterene/Hydrochlorothiazid) 1 Each Capsule 1 Cap PO DAILY Vitals/I & O Vital Sign - Last 24 Hours 03/08/21 03/08/21 03/08/21 03/08/21 15:00 19:41 19:47 22:50 Temp 98.7 98.1 98.2 98.7 98.1 98.2 Pulse 81 77 78 Resp 18 18 18 B/P (MAP) 133/69 (90) 110/56 (74) 149/86 (107) Pulse Ox 98 98 100 O2 Delivery Room Air Room Air Room Air Room Air 03/09/21 03/09/21 03/09/21 03/09/21 02:49 07:00 08:25 10:15 Temp 97.8 98.5 98.2 97.8 98.5 98.2 Pulse 72 73 85 Resp 17 20 20 B/P (MAP) 135/68 (90) 149/68 (95) 153/62 (92) Pulse Ox 100 99 99 O2 Delivery Room Air Room Air Room Air Room Air Intake and Output 03/08/21 03/08/21 03/09/21 15:00 23:00 07:00 Intake Total 200 ml 100 ml Output Total 200 ml 500 ml Balance -200 ml -300 ml 100 ml Justicifation of Admission Dx: Justifications for Admission: Justification of Admission Dx: N/A ANNI WARD MD Mar 09, 2021 12:47
--- NOTE | 2021-03-09 13:51 | NUR ---
SS following up with discharge planning. SS reviewed pt chart and discussed with pt RN. Pt is from home and is currently on room air. PT/OT recommended snf unit. COVID19 test requested for placement. SS contacted pt's son and discussed discharge planning and snf unit. Pt's son requested referral be phoned and faxed to [facility], ; fax [phone]. Pt has had both COVID19 vaccinations and booster per son. SS phoned and faxed referral as requested. Pt has Medicare and needing three midnights prior to discharge. SS will continue to follow for discharge planning.
[2021-03-09 15:00] VITALS: BP 147/65
[2021-03-09 19:24] VITALS: BP 129/64
[2021-03-09] MEDS: ENOXAPARIN 40 MG/0.4 ML SYRINGE. SQ SCH (20:45)
[2021-03-09 22:38] VITALS: BP 131/59
[2021-03-10 02:12] VITALS: BP 123/56
[2021-03-10 07:00] VITALS: BP 142/71
--- NOTE | 2021-03-10 07:06 | NUR ---
PT TRANSFERRED TO [address] [place] [address] VIA . REPORT GIVEN TO ADITI TOLENTINO. PMRN
--- NOTE | 2021-03-10 08:45 | PDOC ---
PROGRESS NOTES Date of Service DATE: 03/10/21 TIME: 08:43 Assessment Altered mental status, probably confusional state due to blindness, she may be developing mild dementia. There is no obvious metabolic issue. Behavior sounds too complex to be due to a seizure. Labs for easily reversible causes of dementia are negative she had some hyperglycemia and hypercalcemia. She feels fine now. Plan Okay for [facility] I discussed with the son Follow-up with me as needed Subjective Complains about the size of her new room Objective Vital Signs Date Time Temp Pulse Resp B/P (MAP) Pulse Ox O2 Delivery O2 Flow Rate FiO2 03/10/21 07:00 98.0 69 17 142/71 (94) 99 Room Air 98.0 Intake and Output 03/10/21 07:00 Intake Total 1160 ml Balance 1160 ml Intake Oral 1160 ml # Voids 1 PHYSICAL EXAM Alert. Oriented to time, place and person. PERRL. EOMI. CN: Blind both eyes, otherwise no focal findings. Muscle tone: normal. Muscle strength: 4/5 DTR: 1+ Plantar reflex: Flexor Gait: not examined in bed. Sensory exam: no abnormal findings. No cerebellar signs elicited, limited by her blindness. Review of Relevant I have reviewed the following items tamia (where applicable) has been applied. Labs Laboratory Tests Test 03/08/21 10:00 03/09/21 03:35 Erythrocyte Sedimentation Rate 23 (0-25) Vitamin B12 Level 543 pg/mL (247-911) White Blood Count 6.5 x10^3/uL (4.0-11.0) Red Blood Count 4.42 x10^6/uL (3.50-5.40) Hemoglobin 12.2 g/dL (12.0-15.5) Hematocrit 38.6 % (36.0-47.0) Mean Corpuscular Volume 87 fL (79-100) Mean Corpuscular Hemoglobin 28 pg (25-35) Mean Corpuscular Hemoglobin Concent 32 g/dL (31-37) Red Cell Distribution Width 13.6 % (11.5-14.5) Platelet Count 233 x10^3/uL (140-400) Neutrophils (%) (Auto) 44 % (31-73) Lymphocytes (%) (Auto) 47 % (24-48) Monocytes (%) (Auto) 6 % (0-9) Eosinophils (%) (Auto) 2 % (0-3) Basophils (%) (Auto) 0 % (0-3) Neutrophils # (Auto) 2.8 x10^3/uL (1.8-7.7) Lymphocytes # (Auto) 3.1 x10^3/uL (1.0-4.8) Monocytes # (Auto) 0.4 x10^3/uL (0.0-1.1) Eosinophils # (Auto) 0.2 x10^3/uL (0.0-0.7) Basophils # (Auto) 0.0 x10^3/uL (0.0-0.2) Sodium Level 140 mmol/L (136-145) Potassium Level 3.6 mmol/L (3.5-5.1) Chloride Level 103 mmol/L (98-107) Carbon Dioxide Level 29 mmol/L (21-32) Anion Gap 8 (6-14) Blood Urea Nitrogen 17 mg/dL (7-20) Creatinine 0.9 mg/dL (0.6-1.0) Estimated GFR (Cockcroft-Gault) 73.3 Glucose Level 87 mg/dL (70-99) Calcium Level 10.3 mg/dL (8.5-10.1) Microbiology 03/08/21 Blood Culture - Preliminary, Resulted NO GROWTH AFTER 2 DAYS Medications Current Medications Ondansetron HCl (Zofran) 4 mg PRN Q8HRS PRN IVP NAUSEA/VOMITING; Start 03/08/21 at 02:30; Stop 03/09/21 at 02:29; Status DC Acetaminophen (Tylenol) 650 mg PRN Q4HRS PRN PO FEVER > 100.3'F; Start 03/08/21 at 02:30; Stop 03/08/21 at 09:57; Status DC Sodium Chloride 500 ml @ 500 mls/hr 1X ONCE IV Last administered on 03/08/21at 02:30; Start 03/08/21 at 02:30; Stop 03/08/21 at 03:29; Status DC Potassium Chloride (Klor-Con) 20 meq DAILY PO Last administered on 03/09/21at 08:32; Start 03/08/21 at 11:00 Triamterene/HCTZ (Maxzide 37.5/ 25mg) 1 tab DAILY PO Last administered on 03/09/21at 08:32; Start 03/08/21 at 11:00 Acetaminophen (Tylenol) 650 mg PRN Q6HRS PRN PO MILD PAIN / TEMP > 100.3'F; Start 03/08/21 at 09:45 Magnesium Hydroxide (Milk Of Magnesia) 2,400 mg PRN DAILY PRN PO CONSTIPATION; Start 03/08/21 at 09:45 Enoxaparin Sodium (Lovenox 40mg Syringe) 40 mg Q24H SQ Last administered on 03/09/21at 20:45; Start 03/08/21 at 21:00 Diclofenac Sodium (Voltaren) 1 kyrie TID TP Last administered on 03/09/21at 20:46; Start 03/08/21 at 14:00 Active Scripts Active [Diclofenac Sodium] 100 GM Gel..gram. 1 Kyrie TP TID apply 4 grams tid to both knees Potassium Chloride (Potassium Chloride) 20 Meq Tablet.er 20 Meq PO DAILY Reported Arthritis Pain Reliever (Acetaminophen) 650 Mg Tablet.er 650 Mg PO PRN Triamterene-Hctz 37.5-25 Mg Cp (Triamterene/Hydrochlorothiazid) 1 Each Capsule 1 Cap PO DAILY Vitals/I & O Vital Sign - Last 24 Hours 03/09/21 03/09/21 03/09/21 03/09/21 10:15 15:00 19:24 20:35 Temp 98.2 98.3 98.2 98.2 98.3 98.2 Pulse 85 75 76 Resp 20 18 18 B/P (MAP) 153/62 (92) 147/65 (92) 129/64 (85) Pulse Ox 99 98 98 O2 Delivery Room Air Room Air Room Air Room Air 03/09/21 03/10/21 03/10/21 22:38 02:12 07:00 Temp 98.6 98.6 98.0 98.6 98.6 98.0 Pulse 68 70 69 Resp 18 18 17 B/P (MAP) 131/59 (83) 123/56 (78) 142/71 (94) Pulse Ox 97 99 99 O2 Delivery Room Air Room Air Room Air Intake and Output 03/09/21 03/09/21 03/10/21 15:00 23:00 07:00 Intake Total 610 ml 550 ml 0 ml Balance 610 ml 550 ml 0 ml Justicifation of Admission Dx: Justifications for Admission: Justification of Admission Dx: N/A ANNI WARD MD Mar 10, 2021 08:45
[2021-03-10] MEDS: DICLOFENAC SODIUM 1% TOPICAL GEL 100GM TUBE. TP SCH ×3 (09:00→20:29)
[2021-03-10] MEDS: POTASSIUM CHLORIDE 20 MEQ TABLET.ER. PO SCH (09:44)
[2021-03-10] MEDS: TRIAMTERENE/HCTZ 37.5/25MG TABLET. PO SCH (09:45)
--- NOTE | 2021-03-10 10:48 | PDOC ---
PROGRESS NOTES Date of Service DATE: 03/10/21 TIME: 10:45 Subjective Subjective discussed with son her mild cognitive impairment/ mild dementia and visual impairment and debility and increased fall risk . she will go to SNF tomorrow and discussed TWIN with son after that. he can work with social work msw at SNF. michael mary olson,. Objective Objective Vital Signs Date Time Temp Pulse Resp B/P (MAP) Pulse Ox O2 Delivery O2 Flow Rate FiO2 03/10/21 08:30 Room Air 03/10/21 07:00 98.0 69 17 142/71 (94) 99 98.0 Intake and Output 03/10/21 07:00 Intake Total 1160 ml Balance 1160 ml Intake Oral 1160 ml # Voids 1 Physical Exam Abdomen: Soft, Other (obese) Heart: Regular rate, Normal S1, Normal S2 Extremities: No edema General: Alert HEENT: Atraumatic Lungs: Clear to auscultation Neuro: Normal speech Psych/Mental Status: Mood NL Skin: No rashes Assessment Assessment 1. Altered mental status, most likely secondary to mild cognitive impairment versus dementia. Metabolic encephalopathy is another possibility; however, I believe she does have at least some mild cognitive impairment and possibly dementia. 2. Hypertension. 3. Osteoarthritis. 4. Morbid obesity. 5. Glaucoma with impaired vision. Plan Plan of Care dismiss tomorrow to SNF recommend TWIN thereafter PT and OT Comment Review of Relevant I have reviewed the following items tamia (where applicable) has been applied. Labs Laboratory Tests Test 03/09/21 03:35 03/09/21 13:50 White Blood Count 6.5 x10^3/uL (4.0-11.0) Red Blood Count 4.42 x10^6/uL (3.50-5.40) Hemoglobin 12.2 g/dL (12.0-15.5) Hematocrit 38.6 % (36.0-47.0) Mean Corpuscular Volume 87 fL (79-100) Mean Corpuscular Hemoglobin 28 pg (25-35) Mean Corpuscular Hemoglobin Concent 32 g/dL (31-37) Red Cell Distribution Width 13.6 % (11.5-14.5) Platelet Count 233 x10^3/uL (140-400) Neutrophils (%) (Auto) 44 % (31-73) Lymphocytes (%) (Auto) 47 % (24-48) Monocytes (%) (Auto) 6 % (0-9) Eosinophils (%) (Auto) 2 % (0-3) Basophils (%) (Auto) 0 % (0-3) Neutrophils # (Auto) 2.8 x10^3/uL (1.8-7.7) Lymphocytes # (Auto) 3.1 x10^3/uL (1.0-4.8) Monocytes # (Auto) 0.4 x10^3/uL (0.0-1.1) Eosinophils # (Auto) 0.2 x10^3/uL (0.0-0.7) Basophils # (Auto) 0.0 x10^3/uL (0.0-0.2) Sodium Level 140 mmol/L (136-145) Potassium Level 3.6 mmol/L (3.5-5.1) Chloride Level 103 mmol/L (98-107) Carbon Dioxide Level 29 mmol/L (21-32) Anion Gap 8 (6-14) Blood Urea Nitrogen 17 mg/dL (7-20) Creatinine 0.9 mg/dL (0.6-1.0) Estimated GFR (Cockcroft-Gault) 73.3 Glucose Level 87 mg/dL (70-99) Calcium Level 10.3 mg/dL (8.5-10.1) SARS-CoV-2 RNA (BELA) Negative (Negative) Laboratory Tests Test 03/09/21 13:50 SARS-CoV-2 RNA (BELA) Negative (Negative) Microbiology 03/08/21 Blood Culture - Preliminary, Resulted NO GROWTH AFTER 2 DAYS Medications Current Medications Ondansetron HCl (Zofran) 4 mg PRN Q8HRS PRN IVP NAUSEA/VOMITING; Start 03/08/21 at 02:30; Stop 03/09/21 at 02:29; Status DC Acetaminophen (Tylenol) 650 mg PRN Q4HRS PRN PO FEVER > 100.3'F; Start 03/08/21 at 02:30; Stop 03/08/21 at 09:57; Status DC Sodium Chloride 500 ml @ 500 mls/hr 1X ONCE IV Last administered on 03/08/21at 02:30; Start 03/08/21 at 02:30; Stop 03/08/21 at 03:29; Status DC Potassium Chloride (Klor-Con) 20 meq DAILY PO Last administered on 03/10/21at 09:44; Start 03/08/21 at 11:00 Triamterene/HCTZ (Maxzide 37.5/ 25mg) 1 tab DAILY PO Last administered on 03/10/21at 09:45; Start 03/08/21 at 11:00 Acetaminophen (Tylenol) 650 mg PRN Q6HRS PRN PO MILD PAIN / TEMP > 100.3'F; Start 03/08/21 at 09:45 Magnesium Hydroxide (Milk Of Magnesia) 2,400 mg PRN DAILY PRN PO CONSTIPATION; Start 03/08/21 at 09:45 Enoxaparin Sodium (Lovenox 40mg Syringe) 40 mg Q24H SQ Last administered on 03/09/21at 20:45; Start 03/08/21 at 21:00 Diclofenac Sodium (Voltaren) 1 kyrie TID TP Last administered on 03/09/21at 20:46; Start 03/08/21 at 14:00 Active Scripts Active [Diclofenac Sodium] 100 GM Gel..gram. 1 Kyrie TP TID apply 4 grams tid to both knees Potassium Chloride (Potassium Chloride) 20 Meq Tablet.er 20 Meq PO DAILY Reported Arthritis Pain Reliever (Acetaminophen) 650 Mg Tablet.er 650 Mg PO PRN Triamterene-Hctz 37.5-25 Mg Cp (Triamterene/Hydrochlorothiazid) 1 Each Capsule 1 Cap PO DAILY Vitals/I & O Vital Sign - Last 24 Hours 03/09/21 03/09/21 03/09/21 03/09/21 15:00 19:24 20:35 22:38 Temp 98.3 98.2 98.6 98.3 98.2 98.6 Pulse 75 76 68 Resp 18 18 18 B/P (MAP) 147/65 (92) 129/64 (85) 131/59 (83) Pulse Ox 98 98 97 O2 Delivery Room Air Room Air Room Air Room Air 03/10/21 03/10/21 03/10/21 02:12 07:00 08:30 Temp 98.6 98.0 98.6 98.0 Pulse 70 69 Resp 18 17 B/P (MAP) 123/56 (78) 142/71 (94) Pulse Ox 99 99 O2 Delivery Room Air Room Air Room Air Intake and Output 03/09/21 03/09/21 03/10/21 15:00 23:00 07:00 Intake Total 610 ml 550 ml 0 ml Balance 610 ml 550 ml 0 ml Justifications for Admission Other Justification SARBJIT HARVEY MD Mar 10, 2021 10:48
[2021-03-10 11:00] VITALS: BP 116/48
--- NOTE | 2021-03-10 13:57 | NUR ---
SW following. Discussed with RN, pt accepted at [facility] for discharge tomorrow (03/11/21). Discharge orders have been faxed already. Awaiting confirmation of whether [facility] wants to arrange a time today for tomorrow. SW will continue to follow.
[2021-03-10 15:00] VITALS: BP 124/59
[2021-03-10 19:00] VITALS: BP 136/67
[2021-03-10] MEDS: ENOXAPARIN 40 MG/0.4 ML SYRINGE. SQ SCH (20:30)
[2021-03-10 23:00] VITALS: BP 118/62
[2021-03-11 03:00] VITALS: BP 140/76
[2021-03-11 07:00] VITALS: BP 139/63
--- NOTE | 2021-03-11 07:58 | PDOC ---
PROGRESS NOTES Date of Service DATE: 03/11/21 TIME: 07:56 Subjective Subjective sleeping. bp is okay blood cultures negative. Objective Objective Vital Signs Date Time Temp Pulse Resp B/P (MAP) Pulse Ox O2 Delivery O2 Flow Rate FiO2 03/11/21 03:00 98.5 95 17 140/76 (97) 98 Room Air 98.5 Intake and Output 03/11/21 07:00 Intake Total 250 ml Balance 250 ml Intake Oral 250 ml # Voids 4 Physical Exam Abdomen: Soft Heart: Regular rate, Normal S1, Normal S2 Extremities: No edema General: Other (sleeping) HEENT: Atraumatic Lungs: Clear to auscultation Neck: Supple Neuro: Other (sleeping) Psych/Mental Status: Other (sleeping) Skin: No rashes Assessment Assessment 1. Altered mental status, most likely secondary to mild cognitive impairment versus dementia. 2. Hypertension. 3. Osteoarthritis. 4. Morbid obesity. 5. Glaucoma with impaired vision. Plan Plan of Care dismiss today to SNF PT and OT Comment Review of Relevant I have reviewed the following items tamia (where applicable) has been applied. Labs Laboratory Tests Test 03/09/21 13:50 SARS-CoV-2 RNA (BELA) Negative (Negative) Microbiology 03/08/21 Blood Culture - Preliminary, Resulted NO GROWTH AFTER 3 DAYS Medications Current Medications Ondansetron HCl (Zofran) 4 mg PRN Q8HRS PRN IVP NAUSEA/VOMITING; Start 03/08/21 at 02:30; Stop 03/09/21 at 02:29; Status DC Acetaminophen (Tylenol) 650 mg PRN Q4HRS PRN PO FEVER > 100.3'F; Start 03/08/21 at 02:30; Stop 03/08/21 at 09:57; Status DC Sodium Chloride 500 ml @ 500 mls/hr 1X ONCE IV Last administered on 03/08/21at 02:30; Start 03/08/21 at 02:30; Stop 03/08/21 at 03:29; Status DC Potassium Chloride (Klor-Con) 20 meq DAILY PO Last administered on 03/10/21at 09:44; Start 03/08/21 at 11:00 Triamterene/HCTZ (Maxzide 37.5/ 25mg) 1 tab DAILY PO Last administered on 03/10/21at 09:45; Start 03/08/21 at 11:00 Acetaminophen (Tylenol) 650 mg PRN Q6HRS PRN PO MILD PAIN / TEMP > 100.3'F; Start 03/08/21 at 09:45 Magnesium Hydroxide (Milk Of Magnesia) 2,400 mg PRN DAILY PRN PO CONSTIPATION; Start 03/08/21 at 09:45 Enoxaparin Sodium (Lovenox 40mg Syringe) 40 mg Q24H SQ Last administered on 03/10/21at 20:30; Start 03/08/21 at 21:00 Diclofenac Sodium (Voltaren) 1 kyrie TID TP Last administered on 03/10/21at 20:29; Start 03/08/21 at 14:00 Active Scripts Active [Diclofenac Sodium] 100 GM Gel..gram. 1 Kyrie TP TID apply 4 grams tid to both knees Potassium Chloride (Potassium Chloride) 20 Meq Tablet.er 20 Meq PO DAILY Reported Arthritis Pain Reliever (Acetaminophen) 650 Mg Tablet.er 650 Mg PO PRN Triamterene-Hctz 37.5-25 Mg Cp (Triamterene/Hydrochlorothiazid) 1 Each Capsule 1 Cap PO DAILY Vitals/I & O Vital Sign - Last 24 Hours 03/10/21 03/10/21 03/10/21 03/10/21 08:30 11:00 15:00 19:00 Temp 98.2 97.6 98.6 98.2 97.6 98.6 Pulse 80 69 98 Resp 17 17 17 B/P (MAP) 116/48 (70) 124/59 (80) 136/67 (90) Pulse Ox 99 100 97 O2 Delivery Room Air Room Air Room Air Room Air 03/10/21 03/10/21 03/11/21 20:00 23:00 03:00 Temp 98.2 98.5 98.2 98.5 Pulse 90 95 Resp 17 17 B/P (MAP) 118/62 (80) 140/76 (97) Pulse Ox 98 98 O2 Delivery Room Air Room Air Room Air Intake and Output 03/10/21 03/10/21 03/11/21 15:00 23:00 07:00 Intake Total 250 ml Balance 250 ml Justifications for Admission Other Justification SARBJIT HARVEY MD Mar 11, 2021 07:58
[2021-03-11] MEDS: TRIAMTERENE/HCTZ 37.5/25MG TABLET. PO SCH (10:13)
[2021-03-11] MEDS: POTASSIUM CHLORIDE 20 MEQ TABLET.ER. PO SCH (10:14)
[2021-03-11] MEDS: DICLOFENAC SODIUM 1% TOPICAL GEL 100GM TUBE. TP SCH (10:17)
[2021-03-11 11:00] VITALS: BP 147/67
== END 2021-03-11 13:10 | DRG 57 ==
LOC: ER 22:37 → 6 SOUTH 03-08 01:40 → OBSVTOIN 03-08 09:50 → 5 NORTH 03-10 06:12
PROVIDERS: ADMIT Internal Medicine; ATTEND Internal Medicine
DX: G31.84 Mild cognitive impairment of uncertain or unknown etiology (principal); Z68.41 Body mass index [BMI] 40.0-44.9, adult; R40.4 Transient alteration of awareness; E66.01 Morbid (severe) obesity due to excess calories; E78.5 Hyperlipidemia, unspecified; E83.52 Hypercalcemia; H40.9 Unspecified glaucoma; H54.3 Unqualified visual loss, both eyes; I10 Essential (primary) hypertension; J45.909 Unspecified asthma, uncomplicated; M19.90 Unspecified osteoarthritis, unspecified site; R56.9 Unspecified convulsions; W01.0XXA Fall on same level from slipping, tripping and stumbling without subsequent striking against object, initial encounter; Z90.710 Acquired absence of both cervix and uterus; Z91.83 Wandering in diseases classified elsewhere; F32.A Depression, unspecified; K21.9 Gastro-esophageal reflux disease without esophagitis; Z79.899 Other long term (current) drug therapy; Y93.89 Activity, other specified; Y92.89 Other specified places as the place of occurrence of the external cause; Y99.8 Other external cause status; Z88.8 Allergy status to other drugs, medicaments and biological substances
CPT/HCPCS: 36415; 70450; 71045; 80048; 80053; 81001; 82140; 82607; 83605; 83735; 83880; 84100; 84443; 84484; 85025; 85651; 87040; 93005; G0378; G0379; J1650; J7040; U0003; U0005; 97110-GP; 97116-GP; 97530-GO; 97530-GP; 97535-GO; 99285-25